=== PATIENT | male | born 1990 ===

== ENCOUNTER → 2018-10-11 13:29 | Outpatient (REF) | payer OTHER, MEDICAID, SELFPAY ==
[2018-10-11 14:07] LABS: INR 2.9 (0.9-1.3); Prothrombin Time 34.4 SECONDS (10.1-12.7)
[2018-10-11 14:18] LABS: Alanine Aminotransferase 26 IU/L (21-72); Albumin 4.8 g/dL (3.5-5.0); Albumin Globulin Ratio 1.5 (1.0-2.8); Alkaline Phosphatase 46 U/L (38-126); Aspartate Aminotransferase 20 IU/L (17-59); BUN Creatinine Ratio 28.9 (6-22); Bilirubin Total 0.8 mg/dL (0.2-1.3); Blood Urea Nitrogen 26 mg/dL (9-20); Carbon Dioxide 27 mmol/L (22-32); Chloride 103 mmol/L (98-107); Cholesterol 143 mg/dL (140-199); Estimated Glomerular Filt Rate > 60.0 mL/min (>60); Globulin 3.1 g/dL (1.7-4.1); Glucose 73 mg/dL (70-100); HDL Cholesterol 51 mg/dL (40-60); HEMOLYSIS < 15 (0-50); LDL Cholesterol Calculated 82 mg/dL (<100); Potassium 4.2 mmol/L (3.4-5.1); Sodium 146 mmol/L (137-145); Total Protein 7.9 g/dL (6.3-8.2); Triglycerides 50 mg/dL (35-150)
== END ==
LOC: LAB 13:29
PROVIDERS: Visit Provider Family Medicine
DX: Q26.8 Other congenital malformations of great veins (principal); Z00.00 Encounter for general adult medical examination without abnormal findings
CPT/HCPCS: 36415; 80053; 80061; 85610

== ENCOUNTER → 2019-01-21 20:36 | Outpatient (REF) | payer OTHER, MEDICAID, SELFPAY ==
[2019-01-21 20:46] LABS: INR 2.7 (0.9-1.3); Prothrombin Time 31.1 SECONDS (10.1-12.7)
== END ==
LOC: LAB 20:36
PROVIDERS: Visit Provider Family Medicine
DX: Q26.8 Other congenital malformations of great veins (principal)
CPT/HCPCS: 36415; 85610